=== PATIENT | male | born 1965 | race Caucasian/White ===

== ENCOUNTER 2023-05-01 08:17 | Emergency (ER) | payer BC, OTHER ==
[2023-05-01] MEDS ORDERED: Bacitracin 1 PK ONE (08:37)
[2023-05-01] MEDS ORDERED: Boostrix 0.5 ML (Tdap) VIAL (>/=7 yrs of age) ONE (08:37)
[2023-05-01] MEDS ORDERED: Lidocaine 1% w/Epinephrine 1:100K 20 ML VIAL ONE (08:37)
== END 2023-05-01 09:10 | disposition home or self-care (01) ==
LOC: MADERS 08:17
DX: S61.411A Laceration without foreign body of right hand, initial encounter (principal); Z23 Encounter for immunization; W26.8XXA Contact with other sharp object(s), not elsewhere classified, initial encounter; Y93.39 Activity, other involving climbing, rappelling and jumping off
CPT/HCPCS: 12041; 90715